=== PATIENT | female | born 1930 | race Asian ===

== ENCOUNTER 2016-11-15 12:56 | Inpatient (IN) | payer MEDICAID, MEDICARE ==
[~2016-11-15] VITALS: Ht 154.9 cm; Wt 63.5 kg
--- NOTE | 2016-11-15 12:56 | NUR ---
Placed in room 01 . Placed on counter maker, blood pressure machine and pulse oximeter. To gown for exam. Side rails up. Report given to Michelle.
[2016-11-15 13:00] VITALS: BP 162/77; PULSE 65; RESP 14; TEMP 98.9; O2SAT 99
--- NOTE | 2016-11-15 13:00 | NUR ---
ER at bedside examining patient.
--- NOTE | 2016-11-15 13:00 | NUR ---
Pt brought by ambulance, A%Ox1, per family pt is ALOC, blood sugar 44 in the field, per EMT glucagon was administered,BS 74 at this time, skin pink and warm, cap refill <3, pt follows commands, denies pain, no arm drift noted.
[2016-11-15] MEDS ORDERED: LIP10 PO (13:16)
[2016-11-15] MEDS ORDERED: CELE200C PO (13:16)
[2016-11-15] MEDS ORDERED: INSU100I20 SQ (13:16)
[2016-11-15] MEDS ORDERED: CARV3.1246 PO (13:16)
[2016-11-15] MEDS ORDERED: METF1000 PO (13:16)
[2016-11-15] MEDS ORDERED: VALS80TA2 PO (13:16)
[2016-11-15] MEDS ORDERED: INSU100V26 SUBCUT (13:16)
[2016-11-15] MEDS ORDERED: ASPI81TA2 PO (13:16)
--- NOTE | 2016-11-15 13:16 | NUR ---
Medication reconciliation completed with information provided by paperwork from family. Any prior medication reconciliation on file was reviewed and corrected.
--- NOTE | 2016-11-15 13:40 | NUR ---
Pt off the unit for CT.
[2016-11-15 13:41] LABS: BASOPHILS % (AUTO) 0.2 % (0.0-2.0); EOSINOPHILS # (AUTO) 0.1 K/uL (0.0-0.4); EOSINOPHILS % (AUTO) 0.9 % (0.0-4.0); HEMATOCRIT 43.3 % (36-48); HEMOGLOBIN 14.4 g/dL (12.0-16.0); LYMPHOCYTES # (AUTO) 1.8 K/uL (1.0-5.5); MEAN CORPUSCULAR HEMOGLOBIN 30 pg (27-31); MEAN CORPUSCULAR HGB CONC 33 % (32-36); MEAN CORPUSCULAR VOLUME 91 fL (79.0-98.0); MONOCYTES # (AUTO) 0.3 K/uL (0.0-1.0); MONOCYTES % (AUTO) 2.7 % (1.7-9.3); NEUTROPHILS # (AUTO) 9.7 K/uL (1.8-7.7); NEUTROPHILS % (AUTO) 81.2 % (40.0-70.0); PLATELET COUNT (AUTO) 331 K/uL (130-430); RED BLOOD CELL COUNT(AUTO) 4.76 MIL/uL (4.2-6.2); RED CELL DISTRIBUTION WIDTH 12.9 % (9.0-15.0); WHITE BLOOD COUNT (AUTO) 11.9 K/uL (4.8-10.8)
[2016-11-15 13:42] LABS: BILIRUBIN,URINE NEGATIVE (NEGATIVE); BLOOD, URINE NEGATIVE (NEGATIVE); CLARITY/URINE CLEAR (CLEAR); COLOR,URINE YELLOW (YELLOW); GLUCOSE,URINE NEGATIVE (NEGATIVE); KETONES,URINE NEGATIVE (NEGATIVE); LEUKOCYTE ESTERASE ,URINE NEGATIVE (NEGATIVE); NITRITE, URINE NEGATIVE (NEGATIVE); PH,URINE 7.5 (5.0-8.0); PROTEIN URINE 1+ (NEGATIVE); UROBILINOGEN,URINE 0.2 (0.2-1.0)
[2016-11-15 13:50] LABS: ANION GAP 5 (5-15); CALCIUM 8.5 mg/dL (8.4-11.0); CHLORIDE 108 mmol/L (98-107); CREATININE 0.67 mg/dL (0.55-1.30); GLUCOSE 170 mg/dL (70-99); POTASSIUM 3.5 mmol/L (3.5-5.1); SODIUM SERUM 138 mmol/L (136-145); UREA NITROGEN, BLOOD 16 mg/dL (8-21)
[2016-11-15 13:53] LABS: PROTHROMBIN TIME 11.2 SECS (9.5-12.5)
[2016-11-15 13:56] LABS: ALANINE AMINOTRANSFERASE 30 U/L (12-78); ALBUMIN 4.1 g/dL (3.4-4.8); ASPARTATE AMINOTRANSFERASE 25 U/L (10-37); CREATINE KINASE, TOTAL 148 U/L (26-192); TOTAL BILIRUBIN 0.4 mg/dL (0.0-1.0); TOTAL PROTEIN, SERUM 7.2 g/dL (6.4-8.3)
--- NOTE | 2016-11-15 13:57 | NUR ---
Pt returned from Ct with no incidents
[2016-11-15] MEDS ORDERED: NS 500 ML IV ONE (15:00)
[2016-11-15] MEDS ORDERED: D5NS 500 ML IV ONE (16:00)
--- NOTE | 2016-11-15 16:05 | NUR ---
ADMIT NOTE Received pt from ER to the floor with a diagnosis of aloc. Admission process initiated. patient oriented to pain management, safety and call light-teach back done.
[2016-11-15 16:23] VITALS: BP 123/72; PULSE 65; RESP 18; TEMP 97.5; O2SAT 98
[2016-11-15] MEDS ORDERED: GLUCOSE 15 GM GEL (in 37.5 GM TUBE) PO PRN ×2 (16:30)
[2016-11-15] MEDS ORDERED: DEXTROSE 50%-WATER 50 ML DISP.SYRIN IVP PRN ×2 (16:30)
[2016-11-15] MEDS: INSULIN REGULAR, HUMAN 100 UNITS/ML, 10 ML VIAL (novoLIN R) SUBCUT PRN ×2 (17:29→21:18)
[2016-11-15] MEDS ORDERED: POTASSIUM CHLORIDE 10 MEQ TAB.PRT.SR PO PRN (18:15)
[2016-11-15] MEDS ORDERED: ACETAMINOPHEN 325 MG TABLET PO PRN (18:15)
[2016-11-15] MEDS ORDERED: ZOLPIDEM TARTRATE 5 MG TABLET PO PRN (18:15)
[2016-11-15] MEDS ORDERED: MAGNESIUM SULFATE 50 ML IV PRN (18:15)
[2016-11-15] MEDS ORDERED: ONDANSETRON HCL 4 MG/2 ML VIAL IVP PRN (18:15)
[2016-11-15] MEDS ORDERED: DOCUSATE SODIUM 100 MG CAPSULE PO PRN (18:15)
[2016-11-15] MEDS ORDERED: LORazepam 2 MG/ML VIAL IVP PRN (18:15)
[2016-11-15] MEDS ORDERED: MORPHINE 2 MG/ML INJ. SYRINGE IVP PRN (18:15)
--- NOTE | 2016-11-15 18:30 | NUR ---
Closing Notes Pt asleep but easily awakened. No complaints of pain or discomfort. No distress noted. Kept comfortable. Fall and safety precautions enforced. Will endorse care to incoming nurse.
[2016-11-15 19:30] VITALS: BP 136/65; PULSE 70; RESP 17; TEMP 97.3; O2SAT 94
--- NOTE | 2016-11-15 19:30 | NUR ---
Initial PM Notes Pt was received lying comfortably in bed fully awake, alert and oriented x3. Pt is Uz[place] speaking and her son is at the bedside. No c/o of pain or discomfort at this time. IVF is infusing well in Right hand at 70ml/hr without any signs of infiltration. Fall and safety precautions are in place. Bed is in the lowest and locked positions. Bed alarm is on. Will continue to monitor pt.
[2016-11-15] MEDS: CARVEDILOL 3.125 MG TABLET (COREG) PO SCH (21:15)
--- NOTE | 2016-11-15 21:18 | NUR ---
Blood Sugar Accucheck 177. 2 units Regular Insulin given SQ. Skin warm and dry to touch. Pt was given HS snacks and pt ate 100%.
[2016-11-15] MEDS: HEPARIN SODIUM,PORCINE 5000 UNITS/ML VIAL SUBCUT SCH (21:20)
--- NOTE | 2016-11-15 23:15 | NUR ---
Ambulation Pt ambulated to the bathroom and back to bed with assist. Gait unsteady. Pt insisted on ambulating and would not use a bedpan or bedside commode. Pt's [id number] is staying at the bedside and participating in pt's care.
[2016-11-15 23:56] VITALS: BP 107/56; PULSE 72; RESP 18; TEMP 98.2; O2SAT 96
--- NOTE | 2016-11-16 01:30 | NUR ---
Rounds Pt is sleeping comfortably in bed without any respiratory distress noted. Call light is with pt.
--- NOTE | 2016-11-16 03:30 | NUR ---
Rounds Pt is sleeping comfortably in bed. Call light is with pt.
[2016-11-16 04:08] VITALS: BP 105/50; PULSE 69; RESP 18; TEMP 97; O2SAT 95
--- NOTE | 2016-11-16 05:00 | NUR ---
Rounds Pt is resting quietly in bed. Call light is with pt.
--- NOTE | 2016-11-16 06:42 | NUR ---
Closing Note Pt is awake and resting comfortably in bed. All pt's needs were attended to. No fall or injury noted this shift. Will endorse to day shift nurse.
[2016-11-16 07:30] LABS: BASOPHILS % (AUTO) 0.5 % (0.0-2.0); EOSINOPHILS # (AUTO) 0.1 K/uL (0.0-0.4); EOSINOPHILS % (AUTO) 1.5 % (0.0-4.0); HEMATOCRIT 39.8 % (36-48); HEMOGLOBIN 13.6 g/dL (12.0-16.0); LYMPHOCYTES # (AUTO) 1.9 K/uL (1.0-5.5); LYMPHOCYTES % (AUTO) 23.7 % (20.5-51.5); MEAN CORPUSCULAR HEMOGLOBIN 31 pg (27-31); MEAN CORPUSCULAR HGB CONC 34 % (32-36); MEAN CORPUSCULAR VOLUME 92 fL (79.0-98.0); MONOCYTES # (AUTO) 0.5 K/uL (0.0-1.0); MONOCYTES % (AUTO) 6.4 % (1.7-9.3); NEUTROPHILS # (AUTO) 5.3 K/uL (1.8-7.7); NEUTROPHILS % (AUTO) 67.9 % (40.0-70.0); PLATELET COUNT (AUTO) 301 K/uL (130-430); RED BLOOD CELL COUNT(AUTO) 4.35 MIL/uL (4.2-6.2); RED CELL DISTRIBUTION WIDTH 13.1 % (9.0-15.0); WHITE BLOOD COUNT (AUTO) 7.8 K/uL (4.8-10.8)
[2016-11-16 07:52] LABS: ANION GAP 9 (5-15); CALCIUM 8.3 mg/dL (8.4-11.0); CHLORIDE 107 mmol/L (98-107); CREATININE 0.79 mg/dL (0.55-1.30); GLUCOSE 149 mg/dL (70-99); SODIUM SERUM 140 mmol/L (136-145); UREA NITROGEN, BLOOD 13 mg/dL (8-21)
[2016-11-16 08:00] VITALS: BP 117/66; PULSE 79; RESP 20; TEMP 98.6; O2SAT 99
--- NOTE | 2016-11-16 08:00 | NUR ---
OPENING NOTE PATIENT IS AWAKE, ALERT. CANTONESE SPEAKING. SON AT BEDSIDE TO ASSIST WITH TRANSLATION. PATIENT DENIES ANY PAIN AT THIS TIME, NO SIGNS OF DISTRESS. ATE 100% OF BREAKFAST. NO COMPLAINTS OF NAUSEA OR DISCOMFORT AT THIS TIME. CALL LIGHT WITHIN REACH.
[2016-11-16] MEDS: ATORVASTATIN 10 MG TABLET PO SCH (09:46)
[2016-11-16] MEDS: ASPIRIN 81 MG TAB.CHEW PO SCH (09:47)
[2016-11-16] MEDS: VALSARTAN 80 MG TABLET (DIOVAN) PO SCH (09:47)
[2016-11-16] MEDS: CARVEDILOL 3.125 MG TABLET (COREG) PO SCH ×2 (09:47→21:12)
[2016-11-16] MEDS: HEPARIN SODIUM,PORCINE 5000 UNITS/ML VIAL SUBCUT SCH ×2 (09:50→21:27)
--- NOTE | 2016-11-16 09:50 | NUR ---
PATIENT AMBULATING IN [place] WITH PHYSICAL THERAPIST. STEADY GAIT WITH WALKER, NO SIGNS OF DISTRESS OR SOB
--- NOTE | 2016-11-16 11:00 | NUR ---
BG WAS 285, RECHECKED BG WAS 303. 8 UNITS OF INSULIN GIVEN PER PROTOCOL
[2016-11-16 11:41] VITALS: BP 133/70; PULSE 77; RESP 18; TEMP 99.7; O2SAT 93
--- NOTE | 2016-11-16 12:30 | NUR ---
SON REMAINS AT BEDSIDE. PATIENT ATE MOST OF LUNCH, NO SIGNS OF ASPIRATION. ALL NEEDS ARE MET. NO SIGNS OF DISTRESS
[2016-11-16] MEDS: INSULIN REGULAR, HUMAN 100 UNITS/ML, 10 ML VIAL (novoLIN R) SUBCUT PRN ×3 (13:41→21:28)
--- NOTE | 2016-11-16 14:30 | NUR ---
PATIENT IS SLEEPING, SON IS AT BEDSIDE SLEEPING WELL.
[2016-11-16 16:26] VITALS: BP 139/65; PULSE 71; RESP 16; TEMP 99.9; O2SAT 95
--- NOTE | 2016-11-16 17:00 | NUR ---
BG 165, WILL MEDICATE W INSULIN WHEN PATIENT IS EATING
--- NOTE | 2016-11-16 18:50 | NUR ---
PATIENT MEDICATED WITH 2 UNITS OF REGULAR INSULIN PER SLIDING SCALE
--- NOTE | 2016-11-16 19:19 | NUR ---
CLOSING NOTE PATIENT REMAINS STABLE, ALERT AND MILDLY CONFUSED PER SON. PATIENT APPEARS TO HAVE A CHEERFUL AND COOPERATIVE DISPOSITION. ALL NEEDS ARE MET, CALL LIGHT WITHIN REACH. NO ACUTE DISTRESS. REPORT GIVEN TO ONCOMING SHIFT.
[2016-11-16 19:50] VITALS: BP 142/65; PULSE 69; RESP 16; TEMP 98; O2SAT 95
--- NOTE | 2016-11-16 19:50 | NUR ---
INITIAL NOTE PATIENT RECEIVED AWAKE AND ALERT. CANTONESE SPEAKING. SON AT BEDSIDE TO ASSIST WITH TRANSLATION. PATIENT DENIES ANY PAIN AT THIS TIME, NO SIGNS OF DISTRESS. VSS. NO COMPLAINTS OF DISCOMFORT AT THIS TIME. IV ACCESS NOTED TO RIGHT HAND, SALINE LOCK. NO REDNESS OR SWELLING AT THE SITE. FLUSHES WELL. WILL CONTINUE TO MONITOR. CALL LIGHT WITHIN REACH, BED ALARM ON.
--- NOTE | 2016-11-16 22:06 | NUR ---
ROUNDS PT. RESTING IN BED, NO S/S OF DISTRESS OR SOB. PT. DENIES PAIN. DAUGHTER IN LAW IS AT THE BEDSIDE AND IS ABLE TO HELP TRANSLATE. WILL CONTINUE TO MONITOR FOR ANY CHANGES. PT. ENCOURAGED TO CALL FOR ANY ASSISTANCE. VERBALIZES UNDERSTANDING. CALL LIGHT IN REACH, BED IN LOWEST, LOCKED POSITION.
[2016-11-17] VITALS: BP 107/51; PULSE 71; RESP 18; TEMP 98.3; O2SAT 95
--- NOTE | 2016-11-17 00:02 | NUR ---
ROUNDS PT. RESTING IN BED WITH EYES CLOSED. CHEST RISE AND FALL NOTED. NO S/S OF ACUTE DISTRESS. NO FACIAL GRIMACING INDICATING PAIN. DAUGHTER IN LAW IS ASLEEP WELL AT THE BEDSIDE. WILL CONTINUE TO MONITOR. SAFETY AND FALL PRECAUTIONS IN PLACE, CALL LIGHT IN REACH.
[2016-11-17 04:00] VITALS: BP 101/54; PULSE 69; RESP 17; TEMP 97.6; O2SAT 96
[2016-11-17 06:49] LABS: BASOPHILS % (AUTO) 0.6 % (0.0-2.0); EOSINOPHILS # (AUTO) 0.1 K/uL (0.0-0.4); EOSINOPHILS % (AUTO) 2.3 % (0.0-4.0); HEMOGLOBIN 13.3 g/dL (12.0-16.0); LYMPHOCYTES # (AUTO) 2.3 K/uL (1.0-5.5); LYMPHOCYTES % (AUTO) 35.3 % (20.5-51.5); MEAN CORPUSCULAR HEMOGLOBIN 30 pg (27-31); MEAN CORPUSCULAR HGB CONC 33 % (32-36); MEAN CORPUSCULAR VOLUME 91 fL (79.0-98.0); MONOCYTES # (AUTO) 0.5 K/uL (0.0-1.0); MONOCYTES % (AUTO) 7.2 % (1.7-9.3); NEUTROPHILS # (AUTO) 3.5 K/uL (1.8-7.7); NEUTROPHILS % (AUTO) 54.6 % (40.0-70.0); PLATELET COUNT (AUTO) 272 K/uL (130-430); RED CELL DISTRIBUTION WIDTH 13.2 % (9.0-15.0); WHITE BLOOD COUNT (AUTO) 6.4 K/uL (4.8-10.8)
--- NOTE | 2016-11-17 06:54 | NUR ---
CLOSING NOTE PT. RESTING IN BED, NO S/S OF ACUTE DISTRESS OR SOB NOTED. PT. DOES NOT HAVE ANY FACIAL GRIMACING INDICATING PAIN. BLOOD SUGAR THIS MORNING WAS 143, NO INSULIN COVERAGE NEEDED. ALL NECESSARY NEEDS WERE MET. SAFETY AND FALL PRECAUTIONS WERE MAINTAINED. WILL ENDORSE CARE TO AM NURSE. CALL LIGHT IN REACH, BED IN LOWEST POSITION.
[2016-11-17 07:27] LABS: ANION GAP 8 (5-15); CALCIUM 8.7 mg/dL (8.4-11.0); CHLORIDE 107 mmol/L (98-107); CREATININE 0.76 mg/dL (0.55-1.30); GLUCOSE 147 mg/dL (70-99); POTASSIUM 3.5 mmol/L (3.5-5.1); SODIUM SERUM 141 mmol/L (136-145); UREA NITROGEN, BLOOD 16 mg/dL (8-21)
[2016-11-17 08:04] VITALS: BP 146/85; PULSE 78; RESP 18; TEMP 98.9; O2SAT 95
--- NOTE | 2016-11-17 08:11 | NUR ---
INITIAL NOTES RECEIVED PATIENT ON BED AWAKE.BREATHING EVEN AND UNLABORED.IV SALINE LOCK INTACT AND PATENT;NO SIGNS AND SYMPTOMS OF INIFLTRATION.SAFETY AND FALL PRECAUTIONS IN PLACE.CALL LIGHT WITHIN REACH
[2016-11-17] MEDS: VALSARTAN 80 MG TABLET (DIOVAN) PO SCH (08:20)
[2016-11-17] MEDS: CARVEDILOL 3.125 MG TABLET (COREG) PO SCH (08:20)
[2016-11-17] MEDS: ASPIRIN 81 MG TAB.CHEW PO SCH (08:20)
[2016-11-17] MEDS: ATORVASTATIN 10 MG TABLET PO SCH (08:20)
[2016-11-17] MEDS: HEPARIN SODIUM,PORCINE 5000 UNITS/ML VIAL SUBCUT SCH (08:23)
--- NOTE | 2016-11-17 11:00 | NUR ---
NOTES PATIENT SITTING ON THE CHAIR WITH SON AT BEDSIDE;NO ACUTE DISTRESS
[2016-11-17] MEDS: INSULIN REGULAR, HUMAN 100 UNITS/ML, 10 ML VIAL (novoLIN R) SUBCUT PRN (11:38)
--- NOTE | 2016-11-17 12:00 | NUR ---
DC PLANNING: [facility] ACCEPTED CM FAXED REFERRAL FOR HOME HEALTH SERVICES TO [facility] PER DR. MONTERO'S ORDER AND REQUEST. [facility] ACCEPTED Pt FOR HOME HEALTH SERVICES AROUND 1:30 P.M. CM PROVIDED RELEASE FOR Pt TO RETURN TO [facility]ARE [facility]ENTER PER SON'S REQUEST THIS IS REQUIRED FOR Pt TO RETURN AFTER BEING IN A HOPSITAL. CM HAD TO USE PER HOSPITAL Rx BECAUSE THERE WAS NO ACCESS TO HOSPITAL STATIONARY TO PROVIDE LETTER FOR SON. [place] DISCUSSED LETTER REQUEST WITH DR. MONTERO IT WAS INITIALLY UNDERSTOOD THE LETTER WAS NEED FOR ASSISTED LIVING FACILITY; BUT Pt LIVES AT HOME WITH SON. DR. MONTERO IN AGREEMENT WITH Rx FOR RELEASE TO RETURN TO [facility] ON Rx FORM; AND, COPY WAS PLACED IN Pt's CHART WITH SON PROVIDED WITH THE ORIGINAL. Addendum: 11/17/16 at 1742 by Roseann Aldana RN 1500: ALONDRA/DARLYN PROVIDED WITH [facility] CONTACT NUMBER: [phone] AND Rx FOR REQUESTED RELEASE DARLYN TO GIVE TO SON WITH DC PAPERWORK PRIOR TO DC.
[2016-11-17 12:19] VITALS: BP 139/67; PULSE 81; RESP 18; TEMP 97.4; O2SAT 98
[2016-11-17 12:35] VITALS: BP 139/67; PULSE 81; RESP 18; TEMP 97.4; O2SAT 97
--- NOTE | 2016-11-17 13:50 | NUR ---
NOTES CHECKED PATIENT.AMBULATED TO THE RESTROOM WITHOUT ASSIST;WITH STEADY GAIT;TOLERATED ACTIVITY WELL
--- NOTE | 2016-11-20 12:18 | NUR ---
Discharge Follow Up Phone Call ROTARY DUMP OPERATOR phoned patient, , and left a voicemail message with offer of assistance and Social Service contact information. ROTARY DUMP OPERATOR phoned [facility] health to determine if they were able to begin services. The initial evaluation was done on 11/18/16. Principal Java Software Engineer will continue to attempt to reach patient. Addendum: 11/26/16 at 1528 by Danielle Hill LCSW TALIB spoke with pt's son, Tan, ([phone]) today; pt's son states that pt is doing well. Pt has an appointment with her PCP tomorrow, 11/27/16. Pt son states that the Cloubrain has been coming out and pt has been checking her blood sugar regularly. Pt's son states that they have no concerns and denied the need for further follow up calls.
== END 2016-11-17 14:25 | disposition home health service (06) | DRG 48 ==
LOC: SED 12:56 → SMU 15:51
PROVIDERS: ADMIT General Practice; ATTEND General Practice
DX: G90.9 Disorder of the autonomic nervous system, unspecified (principal); G93.41 Metabolic encephalopathy; E11.49 Type 2 diabetes mellitus with other diabetic neurological complication; E11.65 Type 2 diabetes mellitus with hyperglycemia; I11.9 Hypertensive heart disease without heart failure; G31.9 Degenerative disease of nervous system, unspecified; E78.5 Hyperlipidemia, unspecified; R26.81 Unsteadiness on feet; Z79.84 Long term (current) use of oral hypoglycemic drugs; I51.7 Cardiomegaly
CPT/HCPCS: 36415; 70450-TC; 71010; 80048; 80053; 81003; 82550-TC; 82962; 83605; 83735-TC; 84484; 85025; 85610-TC; 87040-TC; 93005; 93880; 97110-GP; 97116-GP; 97530-GP; 99285; J1644; J1815; J7040; J7042